=== PATIENT | female | born 1990 | race Hispanic/Latino ===

== ENCOUNTER 2017-10-05 01:25 | Inpatient (IN) | payer MEDICAID ==
[2017-10-05] MEDS ORDERED: Sodium Chloride 0.9% 1,000 ML IV ONE (01:39)
--- NOTE | 2017-10-05 02:00 | C.PDOC ---
History Of Present Illness 27 yo female, poor historian, reports hx of MS ( not on medication), was taking methadone that discontinue 3 months ago, come in for evaluation of seizures developed for past 4 days. Pt reports, " my roommate tells me that I have multiple seizures, describes my eyes rolls back and my body is shaking". Pt admits, was falling frequent for past few days as well. Pt c/o body pain now, appears anxious, intoxicated. Pt denies previous hx of seizure. Pt denies drug use. [facility] Tram[facility]ol 50mg#15, 09/21/17 Tramadol 50mg#12, 08/23/17 Morphine 30mg#120,07/05/17 Morphine 30mg#120, 05/30/17 Morphine 30mg#180, Morphine 15mg#180, etc. Pt was seen by PM Dr.Henry Luna, [address] [place] [address] Time Seen by Provider: 10/05/17 01:38 Chief Complaint (Nursing): Seizure History Per: Patient Past Medical History Reviewed: Historical Data, Nursing Documentation, Vital Signs Vital Signs: Last Vital Signs Temp 97.9 F 10/05/17 05:36 Pulse 106 H 10/05/17 05:36 Resp 18 10/05/17 05:36 BP 142/84 10/05/17 05:36 Pulse Ox 97 10/05/17 05:58 - Medical History PMH: Multiple Sclerosis (DIAG.2YRS AGO) Family History: States: No Known Family Hx - Social History Hx Alcohol Use: Yes Hx Substance Use: Yes - Immunization History Hx Tetanus Toxoid Vaccination: No Hx Influenza Vaccination: No Hx Pneumococcal Vaccination: No Review Of Systems Except As Marked, All Systems Reviewed And Found Negative. Constitutional: Negative for: Fever, Chills Eyes: Negative for: Vision Change ENT: Negative for: Ear Discharge, Nose Discharge Cardiovascular: Negative for: Chest Pain Respiratory: Negative for: Cough, Shortness of Breath Gastrointestinal: Negative for: Nausea, Vomiting, Abdominal Pain, Diarrhea Genitourinary: Negative for: Incontinence Musculoskeletal: Positive for: Back Pain Skin: Positive for: Bruising Neurological: Positive for: Seizures Physical Exam - Physical Exam Appears: Well, Non-toxic, Agitated Skin: Normal Color, Warm, Dry, Ecchymosis (trace ecchymoses B/L UEs) Head: Normacephalic Eye(s): bilateral: PERRL (slugish B/L, horizontal nystagmus, mild), EOMI, Other (trace ecchymoses B/L upper lids, no periorbital edema or ecchymoses) Ear(s): Bilateral: Normal Nose: No Flaring, No Discharge Oral Mucosa: Moist, No Drooling, No Trismus Tongue: No Lesions Lips: No Swelling Throat: No Drooling Neck: Trachea Midline, No Midline Cervical Tenderness, No Paracervical Tenderness, No Step Off Deformity, Supple Cardiovascular: Rhythm Regular, No Murmur, No JVD Respiratory: No Decreased Breath Sounds, No Accessory Muscle Use, No Rales, No Rhonchi, No Stridor, No Wheezing Gastrointestinal/Abdominal: Soft, No Tenderness, No Distention, No Guarding, No Rebound Back: No CVA Tenderness Extremity: Normal ROM, No Tenderness, No Pedal Edema, No Deformity, No Swelling Neurological/Psych: Oriented x3, Normal Speech, Normal Motor, Normal Sensation, Normal Reflexes ED Course And Treatment - Laboratory Results Result Diagrams: 10/05/17 02:17 10/05/17 02:17 Lab Interpretation: No Acute Changes ECG: Interpreted By Me, Viewed By Me ECG Rhythm: Sinus Tachycardia Interpretation Of ECG: Sinus tachy@102/min, NAD, no acute T wave or ST-T changes. O2 Sat by Pulse Oximetry: 97 Pulse Ox Interpretation: Normal - Radiology CXR: Interpreted by Me, Viewed By Me CXR Interpretation: Yes: No Acute Disease - CT Scan/US CT head Other Rad Studies (CT/US): Radiology Report Reviewed CT/US Interpretation: HEAD W/O CONTRAST Exam Date: 10/05/17. . This imaging exam was performed at [facility]. EXAM: CT Head Without Intravenous Contrast. . CLINICAL HISTORY: 27 years old, female; Pain; Headache and other: Seizure. . TECHNIQUE: Axial computed tomography images of the head/brain without intravenous. contrast. All CT scans at this facility use one or more dose reduction. techniques, viz.: automated exposure control; ma/kV adjustment per patient size. (including targeted exams where dose is matched to indication; i.e. head); or. iterative reconstruction technique. Coronal and sagittal reformatted images were created and reviewed. . COMPARISON: No relevant prior studies available. . FINDINGS: Brain: No intracranial hemorrhage. No mass. No definite edema. Ventricles: No hydrocephalus. Bones/joints: No acute fracture. Soft tissues: Unremarkable. Sinuses: No acute sinusitis. Mastoid air cells: Partial opacification of RIGHT mastoid. Orbits: Unremarkable as visualized. . IMPRESSION: 1. No definite acute intracranial abnormality. 2. Mastoid disease. . Dictated By: Amanuel Garrett MD. Dictated Date/Time: 10/05/17231. Signed By: Amanuel Garrett MD. Date Signed: 10/05/17231. Transcribed By: [facility]. Transcribe Date/Time: 10/05/17231. ACYP02/MT Progress Note: On re-eval, Pt appears more comfortable now, resting, not in any apparent distress. No Sz episodes registered in ED. PulsEOx 97% RA. neck: Supple, (-) meningeal sign, (-) carotid bruits, (-) JVD. Lungs: CTA B/L, BS equal B/L. Abd: benign, (-) guarding, (-) rebound. Neurologicaly intact. Blood work review, no acute changes. Imaging review- normal. Pt has clinical findings c/w New onset of seizure, r/o opioid withdrawal. Case discussed with and admission recommend. case discussed with , [facility] and admission arranged with Dx; new onset of sz, Neuro consult ordered. Disposition - Disposition Disposition: HOSPITALIZED Disposition Time: 03:14 Condition: STABLE - Clinical Impression Clinical Impression: Seizure, Opioid withdrawal
[2017-10-05] MEDS ORDERED: Sodium Chloride 0.9% 1,000 ML ONE (02:13)
[2017-10-05 02:25] LABS: BASO # 0.1 K/uL (0.0-0.2); BASO % 0.6 % (0.0-2.0); EOS # 0.3 K/uL (0.0-0.7); EOS % 2.1 % (0.0-4.0); HEMOGLOBIN 11.4 g/dL (11.0-16.0); LYMPH # 2.1 K/uL (1.0-4.3); LYMPH % 16.9 % (20.0-40.0); MEAN CELL VOLUME 93.5 fL (81.0-99.0); MEAN CORPUSCULAR HGB CONC 33.1 g/dL (33.0-37.0); MEAN PLATELET VOLUME 9.4 fL (7.2-11.7); MONO # 1.1 K/uL (0.0-0.8); MONO % 9.3 % (0.0-10.0); NEUT # 8.7 K/uL (1.8-7.0); NEUT % 71.1 % (50.0-75.0); RBC 3.68 Mil/uL (3.80-5.20); RED CELL DISTRIBUTION WIDTH 14.9 % (11.5-14.5); WHITE BLOOD COUNT 12.2 K/uL (4.8-10.8)
[2017-10-05 02:28] LABS: SQUAMOUS EPITHIAL 2 /hpf (0-5); URINE BACTERIA RARE (<OCC); URINE BILIRUBIN NEGATIVE (NEGATIVE); URINE BLOOD NEGATIVE (NEGATIVE); URINE CLARITY Clear (Clear); URINE COLOR Yellow (YELLOW); URINE GLUCOSE (UA) NORMAL (Normal); URINE LEUKOCYTE ESTERASE NEG Leu/uL (Negative); URINE NITRATE NEGATIVE (NEGATIVE); URINE PROTEIN NEGATIVE (NEGATIVE); URINE UROBILINOGEN NORMAL mg/dL (0.2-1.0)
[2017-10-05 02:32] LABS: HCG,QUALITATIVE URINE NEGATIVE (NEGATIVE)
--- NOTE | 2017-10-05 02:32 | CT ---
EXAM: CT Head Without Intravenous Contrast CLINICAL HISTORY: 27 years old, female; Pain; Headache and other: Seizure TECHNIQUE: Axial computed tomography images of the head/brain without intravenous contrast. All CT scans at this facility use one or more dose reduction techniques, viz.: automated exposure control; ma/kV adjustment per patient size (including targeted exams where dose is matched to indication; i.e. head); or iterative reconstruction technique. Coronal and sagittal reformatted images were created and reviewed. COMPARISON: No relevant prior studies available. FINDINGS: Brain: No intracranial hemorrhage. No mass. No definite edema. Ventricles: No hydrocephalus. Bones/joints: No acute fracture. Soft tissues: Unremarkable. Sinuses: No acute sinusitis. Mastoid air cells: Partial opacification of RIGHT mastoid. Orbits: Unremarkable as visualized. IMPRESSION: 1. No definite acute intracranial abnormality. 2. Mastoid disease.
[2017-10-05 02:36] LABS: INR 0.8; PROTHROMBIN TIME 9.3 SECONDS (9.7-12.2)
[2017-10-05 02:37] LABS: ALB/GLOB RATIO 1.5 (1.0-2.1); ALBUMIN 3.9 g/dL (3.5-5.0); ALT/SGPT 40 U/L (9-52); AST/SGOT 21 U/L (14-36); BLOOD UREA NITROGEN 30 mg/dL (7-17); CALCIUM 8.5 mg/dl (8.6-10.4); GFR AFRICAN-AMERICAN > 60; GFR NON-AFRICAN AMERICAN > 60
[2017-10-05 02:38] LABS: BARBITURATES, UR NEGATIVE (NEGATIVE); BENZODIAZEPINES, UR NEGATIVE (NEGATIVE); OPIATES, UR NEGATIVE (NEGATIVE); PHENCYCLIDINE, UR NEGATIVE (NEGATIVE)
[2017-10-05 04:33] LABS: URINE BACTERIA RARE (<OCC); URINE BILIRUBIN NEGATIVE (NEGATIVE); URINE BLOOD NEGATIVE (NEGATIVE); URINE CLARITY Clear (Clear); URINE COLOR Straw (YELLOW); URINE GLUCOSE (UA) NORMAL (Normal); URINE LEUKOCYTE ESTERASE NEG Leu/uL (Negative); URINE NITRATE NEGATIVE (NEGATIVE); URINE PROTEIN NEGATIVE (NEGATIVE); URINE UROBILINOGEN NORMAL mg/dL (0.2-1.0)
[2017-10-05 04:46] LABS: BARBITURATES, UR NEGATIVE (NEGATIVE); BENZODIAZEPINES, UR NEGATIVE (NEGATIVE); OPIATES, UR NEGATIVE (NEGATIVE); PHENCYCLIDINE, UR NEGATIVE (NEGATIVE)
[2017-10-05 04:59] LABS: PROLACTIN 12.6 ng/mL (3.0-18.9)
--- NOTE | 2017-10-05 07:12 | CP.PCM.CON ---
History of Present Illness - History of Present Illness History of Present Illness: CONSULT DICTATED SZ X EVERY DAY X4 BITTEN TONGUE POST OPTIC NEURITIS DIG MS Rx GELYNIA AT [facility] NON COMPLIANT UNDER PAIN MANAGEMENT ON METHADONE MRI/EEG / BLOOD FALL AND SZ PRECAUTION NO AED NOW Past Patient History - Infectious Disease Hx of Infectious Diseases: None - Past Social History Smoking Status: [place]IJ[place] - NEUROLOGICAL Hx Multiple Sclerosis: Yes (DIAG.2YRS AGO) - PSYCHIATRIC Hx Substance Use: Yes - SURGICAL HISTORY Hx Surgeries: No - ANESTHESIA Hx Anesthesia: No Meds Allergies/Adverse Reactions: Allergies Allergy/AdvReac Type Severity Reaction Status Date / Time No Known Allergies Allergy Verified 10/05/17 02:08 - Medications Medications: Current Medications Lorazepam (Ativan) 1 mg IVP ONCE ONE Stop: 10/05/17 07:10 Results - Vital Signs Recent Vital Signs: Last Vital Signs Temp 98 F 10/05/17 06:15 Pulse 110 H 10/05/17 06:15 Resp 20 10/05/17 06:15 BP 146/77 10/05/17 06:15 Pulse Ox 97 10/05/17 06:15 - Labs Result Diagrams: 10/05/17 02:17 10/05/17 02:17 Labs: Laboratory Results - last 24 hr 10/05/17 10/05/17 10/05/17 02:17 02:17 02:17 WBC 12.2 H RBC 3.68 L Hgb 11.4 Hct 34.4 MCV 93.5 MCH 31.0 MCHC 33.1 RDW 14.9 H Plt Count 355 MPV 9.4 Neut % (Auto) 71.1 Lymph % (Auto) 16.9 L [place] % (Auto) 9.3 Eos % (Auto) 2.1 Baso % (Auto) 0.6 Neut # (Auto) 8.7 H Lymph # (Auto) 2.1 [place] # (Auto) 1.1 H Eos # (Auto) 0.3 Baso # (Auto) 0.1 PT 9.3 L INR 0.8 APTT 27 Sodium Potassium Chloride Carbon Dioxide Anion Gap BUN Creatinine Est GFR ( Amer) Est GFR (Non-Af Amer) Random Glucose Calcium Total Bilirubin AST ALT Alkaline Phosphatase Total Creatine Kinase Troponin I Total Protein Albumin Globulin Albumin/Globulin Ratio Prolactin Urine Color Urine Clarity Urine pH Ur Specific [place] Urine Protein Urine Glucose (UA) Urine Ketones Urine Blood Urine Nitrate Urine Bilirubin Urine Urobilinogen Ur Leukocyte Esterase Urine WBC (Auto) Urine RBC (Auto) Ur Squamous Epith Cells Urine Bacteria Urine HCG, Qual Urine Opiates Screen Urine Methadone Screen Ur Barbiturates Screen Ur Phencyclidine Scrn Ur Amphetamines Screen U Benzodiazepines Scrn U Oth Cocaine Metabols U Cannabinoids Screen Influenza Typ A,B (EIA) Negative for flu a/b 10/05/17 10/05/17 10/05/17 02:17 02:17 02:17 WBC RBC Hgb Hct MCV MCH MCHC RDW Plt Count MPV Neut % (Auto) Lymph % (Auto) [place] % (Auto) Eos % (Auto) Baso % (Auto) Neut # (Auto) Lymph # (Auto) [place] # (Auto) Eos # (Auto) Baso # (Auto) PT INR APTT Sodium 141 Potassium 4.2 Chloride 105 Carbon Dioxide 22 Anion Gap 18 BUN 30 H Creatinine 1.1 Est GFR ( Amer) > 60 Est GFR (Non-Af Amer) > 60 Random Glucose 113 H Calcium 8.5 L Total Bilirubin 0.3 AST 21 ALT 40 Alkaline Phosphatase 93 Total Creatine Kinase Troponin I < 0.0120 Total Protein 6.5 Albumin 3.9 Globulin 2.7 Albumin/Globulin Ratio 1.5 Prolactin Urine Color Yellow Urine Clarity Clear Urine pH 5.0 Ur Specific [place] 1.028 Urine Protein Negative Urine Glucose (UA) Normal Urine Ketones Negative Urine Blood Negative Urine Nitrate Negative Urine Bilirubin Negative Urine Urobilinogen Normal Ur Leukocyte Esterase Neg Urine WBC (Auto) 1 Urine RBC (Auto) 1 Ur Squamous Epith Cells 2 Urine Bacteria Rare Urine HCG, Qual Negative Urine Opiates Screen Negative Urine Methadone Screen Negative Ur Barbiturates Screen Negative Ur Phencyclidine Scrn Negative Ur Amphetamines Screen Negative U Benzodiazepines Scrn Negative U Oth Cocaine Metabols Negative U Cannabinoids Screen Negative Influenza Typ A,B (EIA) 10/05/17 10/05/17 10/05/17 04:27 04:27 04:27 WBC RBC Hgb Hct MCV MCH MCHC RDW Plt Count MPV Neut % (Auto) Lymph % (Auto) [place] % (Auto) Eos % (Auto) Baso % (Auto) Neut # (Auto) Lymph # (Auto) [place] # (Auto) Eos # (Auto) Baso # (Auto) PT INR APTT Sodium Potassium Chloride Carbon Dioxide Anion Gap BUN Creatinine Est GFR ( Amer) Est GFR (Non-Af Amer) Random Glucose Calcium Total Bilirubin AST ALT Alkaline Phosphatase Total Creatine Kinase Troponin I Total Protein Albumin Globulin Albumin/Globulin Ratio Prolactin Urine Color Straw Urine Clarity Clear Urine pH 5.0 Ur Specific [place] 1.030 Urine Protein Negative Urine Glucose (UA) Normal Urine Ketones Negative Urine Blood Negative Urine Nitrate Negative Urine Bilirubin Negative Urine Urobilinogen Normal Ur Leukocyte Esterase Neg Urine WBC (Auto) < 1 Urine RBC (Auto) 1 Ur Squamous Epith Cells Urine Bacteria Rare Urine HCG, Qual Negative Urine Opiates Screen Negative Urine Methadone Screen Negative Ur Barbiturates Screen Negative Ur Phencyclidine Scrn Negative Ur Amphetamines Screen Negative U Benzodiazepines Scrn Negative U Oth Cocaine Metabols Negative U Cannabinoids Screen Negative Influenza Typ A,B (EIA) 10/05/17 04:29 WBC RBC Hgb Hct MCV MCH MCHC RDW Plt Count MPV Neut % (Auto) Lymph % (Auto) [place] % (Auto) Eos % (Auto) Baso % (Auto) Neut # (Auto) Lymph # (Auto) [place] # (Auto) Eos # (Auto) Baso # (Auto) PT INR APTT Sodium Potassium Chloride Carbon Dioxide Anion Gap BUN Creatinine Est GFR ( Amer) Est GFR (Non-Af Amer) Random Glucose Calcium Total Bilirubin AST ALT Alkaline Phosphatase Total Creatine Kinase 79 Troponin I Total Protein Albumin Globulin Albumin/Globulin Ratio Prolactin 12.6 Urine Color Urine Clarity Urine pH Ur Specific [place]itus Urine Protein Urine Glucose (UA) Urine Ketones Urine Blood Urine Nitrate Urine Bilirubin Urine Urobilinogen Ur Leukocyte Esterase Urine WBC (Auto) Urine RBC (Auto) Ur Squamous Epith Cells Urine Bacteria Urine HCG, Qual Urine Opiates Screen Urine Methadone Screen Ur Barbiturates Screen Ur Phencyclidine Scrn Ur Amphetamines Screen U Benzodiazepines Scrn U Oth Cocaine Metabols U Cannabinoids Screen Influenza Typ A,B (EIA)
--- NOTE | 2017-10-05 07:40 | RAD ---
Chest x-ray single frontal view History: Seizure. Comparison: 10/05/2017 Findings: Mild venous congestion. Bilateral hilar prominence. Heart size within normal limits. Impression: Mild venous congestion. Bilateral hilar prominence.
[2017-10-05 08:13] LABS: MAGNESIUM 1.8 mg/dL (1.6-2.3)
--- NOTE | 2017-10-05 09:24 | CP.PCM.PN ---
Subjective - Date & Time of Evaluation Date of Evaluation: 10/05/17 Time of Evaluation: 09:40 - Subjective Subjective: [facility] # [id number] Objective - Vital Signs/Intake and Output Vital Signs (last 24 hours): Temp Pulse Resp BP Pulse Ox 98.8 F 102 H 18 114/72 98 10/05/17 08:35 10/05/17 08:35 10/05/17 08:35 10/05/17 08:35 10/05/17 08:35 - Labs Labs: 10/05/17 02:17 10/05/17 02:17 PT 9.3 SECONDS (9.7-12.2) L 10/05/17 02:17 INR 0.8 10/05/17 02:17 APTT 27 SECONDS (21-34) 10/05/17 02:17
[2017-10-05] MEDS ORDERED: Gadodiamide 287 mg/ml 20 ml IV ONE (11:06)
--- NOTE | 2017-10-05 13:27 | MRI ---
PROCEDURE: MRI of the brain dated 10/05/2017. HISTORY: Seizure protocol - attention mesial temporal lobe COMPARISON: Comparison made with CT scan earlier same day. TECHNIQUE: Multiplanar, multisequence MR images of the brain were obtained with and without intravenous contrast enhancement. Approximately 14 cc Omniscan contrast material injected for this examination. Study is limited by motion artifact. FINDINGS: HEMORRHAGE: Same day no acute parenchymal, subarachnoid or extra-axial hemorrhage. No evidence of hemosiderin deposition identified on gradient echo weighted sequence. There DWI: No evidence of an acute or early subacute infarction seen on diffusion imaging. BRAIN PARENCHYMA: There are no focal areas of abnormal signal poor contrast enhancement seen within the substance of the brain. . No evidence to suggest mesial temporal sclerosis. No enhancing extra-axial masses or collections. No evidence of unusual meningeal enhancement. . ENHANCEMENT: No enhancement as above. . VENTRICLES: No obstructive hydrocephalus. CRANIUM: No acute calvarial abnormalities ORBITS: Orbits and contents grossly unremarkable PARANASAL SINUSES/MASTOIDS: Partial opacification right mastoid air complex. VASCULAR SYSTEM: Visualized major vascular flow voids at skull base are patent. . OTHER FINDINGS: None . IMPRESSION: No acute intracranial abnormalities. Partial opacification right mastoid air complex. Findings discussed with Dr. Zheng at 1:18 p.m. with written down and read back verification.
[2017-10-05] MEDS: Morphine 4 MG/ML VIAL IVP PRN ×2 (14:26→21:13)
[2017-10-05 14:54] LABS: ANA PATTERN NUCLEOLAR
--- NOTE | 2017-10-05 18:11 | CON ---
DATE: 10/05/2017 TIME OF EVALUATION: 07:05 a.m. ATTENDING PHYSICIAN: Brandie Valdes MD LOCATION: Room number 0559, bed B. REASON FOR CONSULTATION: Seizures. CHIEF COMPLAINT: The patient was brought in by family members with a history of seizures at home. From neurological point of view, I was called in to evaluate her for further management. HISTORY OF PRESENT ILLNESS: Ms. Kalpana Murillo is a 27-year-old very anxious, tremulous female, presenting with seizures every day for the last 4 days. She was told that she was tremulous, both eyes rolled up and fell. During the fall she hit her head and as well as she hit her arm last attack. This episode was associated with bitten tongue on the right lateral side of her tongue. No history of bowel and bladder incontinence during the episodes. She has been complaining of severe body pain that brings her to the hospital for further management. PAST MEDICAL HISTORY: History of optic neuritis three times more than 2 years ago, been followed by a neurologist in the [facility] by Dr. Felipe. He started her on Gilenya. Because of gastric problem, she stopped her medication more than 2 months now. No history of flare-up from MS. However, she has been having severe significant pain, been followed by Pain Management, been hooked up with methadone for now. Past medical history of multiple sclerosis, history of optic neuritis, and drug dependency. PERSONAL HISTORY: No history of alcohol use. No history of substance abuse. REVIEW OF SYSTEMS: The 12-point system being reviewed from neuro, syncopal, and seizures. PHYSICAL EXAMINATION: VITAL SIGNS: Blood pressure 146/77, mean artery pressure of 100, respiratory rate 16, temperature 98, pulse rate 110. NECK: Supple. No carotid bruits. HEART: Heart sounds regular. CHEST: Fair air entry. EXTREMITIES: No edema in legs. NEUROLOGIC EXAMINATION: Mental status examination: She is anxious awake, alert, and oriented to person, place, and time. No sign of depression. No sign of hallucination. She is highly comprehended. Cranial nerve examination: Visual field intact. Pupils reactive to light. Extraocular movement normal. No nystagmus. No facial sensory deficit. No facial asymmetry. Hearing is normal. Tongue is midline. Good gag. No nystagmus at the primary gaze. No afferent pupillary defect. Motor examination, he could be able to lift both upper extremities against gravity. Some tremor noted on both upper extremities. No asterixis. Deep tendon reflexes biceps, brachialis, triceps, knee, and ankle all are 2+ on either side. Plantars are downgoing. Sensory examination: No cortical sensory loss. Coordination: Finger-nose test is intact. Gait: Short step. No hemiparetic gait. No spastic gait. Romberg sign negative. WORKUP: CT of the head reviewed, no acute pathology is noted. BLOOD WORKUP: WBC 12.3, hemoglobin 11.4, hematocrit 34.4, platelet 355. PT 9.3, INR 0.8, PTT 27. Sodium 141, potassium 4.2, chloride 105, bicarbonate 22, BUN 30, GFR more than 60, glucose 113. Urinalysis normal. HCG is negative. Urine for tox screen is negative. CONCLUSION: Ms. Kalpana Murillo has been presenting with witnessed seizures as per the history with association with a bitten tongue on the right lateral part of the tongue. For the neurological examination, the patient showed a very anxious level with no long tract sign present. RECOMMENDATIONS: 1. IV hydration. 2. Check the electrolytes. 3. MRA of the brain with and without gadolinium to rule out any acute pathology to assess the demyelinating disease. 4. Electroencephalogram to rule out any focal seizures or abnormal electrical activities of the brain. 5. Blood workup as per the order. No antiepileptic drug is needed at this time. I will closely observe her and fall precautions and seizure precautions should be maintained. The patient will be followed closely with you. Avery Zheng MD
--- NOTE | 2017-10-06 01:19 | HP ---
CHIEF COMPLAINT: The patient had witnessed seizure. He has been having multiple episodes of seizures for the past 4 days. HISTORY OF PRESENT ILLNESS: Mr. Murillo is a 27-year-old female with multiple sclerosis diagnosed about 2 years ago, on Gilenya, who has been following up with Neurology at [facility], self-discontinued Gilenya secondary to nausea about 3 months ago. She was recently evaluated by Neurology in August. Noncompliance with her other medication. Has been following up with the Pain Management as per the patient from [place]. Has been on baclofen for many years. Recently admitted to [facility] about 2 days ago for seizures and was there a day and discharged home and the patient came into [facility] ED complaining of having the seizures one everyday for the past 4 days. As per the patient, the seizure occurred yesterday and she came into the hospital taking Uber as per the patient. When I examined, she denies any headache or dizziness. Denies any chest pain, shortness of breath, or wheezing. Denies any nausea, vomiting, abdominal pain, diarrhea, or constipation, but complaining of generalized body aches, back pain, and leg pains and demanding for the morphine or the pain medication claiming that morphine helped her and she was given morphine by the Pain Management MD as outpatient and she refused to go to EEG because she did not get her pain medication. When I examined, she denied any other complaints or any other neurologic symptoms. She denied any aura or any other associated symptoms when she has had seizure, other than having tongue bite which was witnessed by the roommate. PAST MEDICAL HISTORY: As described, multiple sclerosis. PAST SURGICAL HISTORY: Underwent lacrimal gland surgery and wisdom tooth extracted many years ago. FAMILY HISTORY: Coronary artery disease in mother, brother, grandmother, and uncle has history of diabetes mellitus. PERSONAL HISTORY: She is single, not , not having any children. Lives with roommate. Her parents are from [place], they live in [place] as per the patient. SOCIAL HISTORY: She smokes marijuana for pain, which she used about 2 weeks ago. Denies smoking or any other drugs. ALLERGIES: SHE IS ALLERGIC TO CIPROFLOXACIN AND REGLAN. HOME MEDICATIONS: She is noncompliant with medications and not taking any medications at the present time, but claims that she was given Baclofen 20 mg p.o. t.i.d. and morphine by her pain management MD. REVIEW OF SYSTEMS: As described in history of present illness. All other systems reviewed and were found to be negative. PHYSICAL EXAMINATION: GENERAL: Young female, lying in bed, in no acute distress. VITAL SIGNS: Blood pressure 114/72, pulse 102, respirations 18, temperature 98.8 degrees Fahrenheit, O2 saturations 98% on room air. HEENT: Pupils equal, round, and reactive to light and accommodation. Extraocular muscles intact. No icterus. No pallor. No oral thrush. No pharyngeal congestion. NECK: Supple. No JVD. No thyromegaly. CHEST: Moving equally bilaterally on respiration. LUNGS: Bilateral vesicular breath sounds. No wheezing, no rhonchi. CVS: S1, S2 present. Regular. ABDOMEN: Soft. Nontender. Bowel sounds present. No guarding. No rigidity. No rebound tenderness noted. COMPUTING CONSULTANT: Alert, awake, and oriented x3. No focal deficits noted. EXTREMITIES: No edema. Palpable peripheral pulses. LABORATORY DATA: Labs sent from ED, WBC 12.2, hemoglobin 11.4, hematocrit 34.4, platelets 355. PT is 9.3, INR 0.8, PTT 27. Sodium 141, potassium 4.2, chloride 105, bicarbonate 22. BUN 30, creatinine 1.1, glucose 113, calcium 8.5, phosphorus 3.7, magnesium 1.8, total bilirubin 0.8, 0.3, AST 21, ALT 40, alkaline phosphatase 93, CPK 79. Cardiac enzymes x2 are negative. Total protein 6.5, albumin 3.9, vitamin B 16.6, prolactin 17. UA is negative. Urine drug screen is negative. Influenza negative. CT head, partial opacification of the right mastoid. No definite acute intracranial abnormality. Chest x-ray: Mild venous congestion, bilateral hilar prominence. MRI of the brain: No acute intracranial abnormalities, partial opacification of right mastoid complex. ASSESSMENT AND PLAN: Young female with prior history of multiple sclerosis diagnosed 2 years ago, was on Gilenya, self discontinued. Has been on multiple pain medications as per her by the pain management, who was admitted to [facility] for 2 days and released after a day, came into the emergency department as the patient has been having seizures everyday for the past 4 days and she had 2 seizures yesterday, which were witnessed and she had tongue bite. The patient is being admitted for further evaluation and management. 1. New-onset seizure in a patient with prior history of multiple sclerosis. 2. Chronic low back pain. 3. Partial opacification of the right mastoid complex. PLAN: The patient is being admitted to telemetry, was monitored for seizure precaution, fall prevention. EEG is still pending. MRI results reviewed. Neurology consult appreciated. We will give morphine for pain as needed, Ativan as needed for seizures. Avail obtaining ENT consult for mastoid disease. We will start empiric antibiotics. We will add further recommendation as her clinical course progresses. Brandie Valdes MD
[2017-10-06] MEDS: Morphine 4 MG/ML VIAL IVP PRN ×2 (04:11→10:08)
--- NOTE | 2017-10-06 04:17 | CON ---
DATE: 10/05/2017 REASON FOR CONSULTATION: Possible mastoiditis. REQUESTING PHYSICIAN: Dr. Valdes. HISTORY OF PRESENT ILLNESS: This is a 27-year-old who for the past 3 days has been having seizures along with dizziness. Dizziness is constant, [id number] in intensity. There is no hearing loss. No ear pain. No ringing in the ear. The dizziness is accompanied by vertigo. PAST MEDICAL HISTORY: As noted in the chart by me. MEDICATIONS: As noted in the chart by me. PHYSICAL EXAMINATION: HEAD: Atraumatic and normocephalic. FACE: Good facial movements bilaterally. CONSTITUTIONAL: Well fed, well nourished. COMMUNICATION: Communicates well and appropriately. EXTERNAL NOSE AND EARS: No masses. No lesions. No erythema. No edema. Ears: TM intact with no fluid behind it on both sides on both sides. INTERNAL NOSE AND EARS: Deviated septum. No masses. No lesions. No erythema. No edema. ORAL CAVITY AND OROPHARYNX: No masses. No lesions. No erythema. No edema. LIPS AND GUMS: No masses. No lesions. No erythema. No edema. NECK: Supple. THYROID: No thyromegaly. No goiter. LYMPH NODES: No lymphadenopathy of the neck. A CAT scan of the head was reviewed by me. No significant mastoiditis is noted. ASSESSMENT: 1. Mastoiditis not noted. 2. Dizziness secondary to seizures. No ENT intervention is needed at this time. Satnam Ferreira MD MTDD
[2017-10-06 09:07] LABS: BASO # 0.1 K/uL (0.0-0.2); BASO % 0.6 % (0.0-2.0); EOS # 0.3 K/uL (0.0-0.7); EOS % 2.4 % (0.0-4.0); HEMOGLOBIN 12.5 g/dL (11.0-16.0); LYMPH # 1.5 K/uL (1.0-4.3); LYMPH % 12.2 % (20.0-40.0); MEAN CELL VOLUME 91.7 fL (81.0-99.0); MEAN CORPUSCULAR HEMOGLOBIN 31.3 pg (27.0-31.0); MEAN CORPUSCULAR HGB CONC 34.2 g/dL (33.0-37.0); MEAN PLATELET VOLUME 9.1 fL (7.2-11.7); MONO # 0.8 K/uL (0.0-0.8); MONO % 6.5 % (0.0-10.0); NEUT # 9.4 K/uL (1.8-7.0); NEUT % 78.3 % (50.0-75.0); NRBC % 0.1 % (0.0-2.0); RBC 3.98 Mil/uL (3.80-5.20); RED CELL DISTRIBUTION WIDTH 15.3 % (11.5-14.5); WHITE BLOOD COUNT 12.1 K/uL (4.8-10.8)
--- NOTE | 2017-10-06 09:31 | CP.PCM.PN ---
Subjective - Date & Time of Evaluation Date of Evaluation: 10/06/17 Time of Evaluation: 09:30 - Subjective Subjective: Progress note dictated # [id number] Objective - Vital Signs/Intake and Output Vital Signs (last 24 hours): Temp Pulse Resp BP Pulse Ox 98.1 F 98 H 20 124/82 98 10/06/17 07:00 10/06/17 07:00 10/06/17 07:00 10/06/17 07:00 10/06/17 07:00 - Medications Medications: Current Medications Ceftriaxone Sodium 1 gm/ (Sodium Chloride) 100 mls @ 200 mls/hr IVPB Q24H MICHAEL Last Admin: 10/05/17 14:27 Dose: 200 mls/hr Morphine Sulfate (Morphine) 2 mg IVP Q6H PRN PRN Reason: Pain, severe (8-10) Last Admin: 10/06/17 04:11 Dose: 2 mg - Labs Labs: 10/06/17 08:51 10/05/17 02:17 PT 9.3 SECONDS (9.7-12.2) L 10/05/17 02:17 INR 0.8 10/05/17 02:17 APTT 27 SECONDS (21-34) 10/05/17 02:17
[2017-10-06 09:58] LABS: LDL CHOLESTEROL 110 mg/dL (0-129)
[2017-10-06 10:58] LABS: ALT/SGPT 49 U/L (9-52)
[2017-10-06 10:59] LABS: ALB/GLOB RATIO 1.2 (1.0-2.1); AST/SGOT 44 U/L (14-36); BLOOD UREA NITROGEN 15 mg/dL (7-17); CALCIUM 9.2 mg/dl (8.6-10.4); GFR AFRICAN-AMERICAN > 60; GFR NON-AFRICAN AMERICAN > 60; HDL CHOLESTEROL 58 mg/dL (30-70)
[2017-10-06] MEDS: HYDROmorphone 1 mg/ml ISec IVP PRN ×2 (12:41→19:05)
[2017-10-07] MEDS: HYDROmorphone 1 mg/ml ISec IVP PRN ×4 (01:07→20:51)
--- NOTE | 2017-10-07 02:04 | PN ---
DATE: 10/06/2017 SUBJECTIVE: The patient was seen and examined at bedside this morning. The patient is still complaining of generalized body aches and back pain, requesting for more pain medications and muscle relaxants. Denies any new complaints. All other systems reviewed and were found to be negative. PHYSICAL EXAMINATION: GENERAL: Young female lying in bed in no acute distress. VITAL SIGNS: Blood pressure 105/68, pulse 76, respirations 18, temperature 99 degrees Fahrenheit, O2 saturation is 98% on room air. HEENT: Pupils equal, round, and reacting to light and accommodation. Extraocular muscles intact. No icterus. No pallor. No oral thrush. No pharyngeal congestion. NECK: Supple. No JVD. No thyromegaly. CHEST: Moving equally bilaterally on respiration. LUNGS: Bilateral vesicular breath sounds. No wheezing, no rhonchi. CVS: S1, S2 present. Regular. ABDOMEN: Soft. Nontender. Bowel sounds present. No guarding. No rigidity. No rebound tenderness noted. MEETING SPECIALIST: Alert, awake, and oriented x3. No focal deficits noted. EXTREMITIES: No edema. Palpable peripheral pulses. MEDICATIONS: Include Rocephin 1 gm daily, Dilaudid 1 mg IV push q. 6 p.r.n. LABORATORY DATA: Labs from this morning: WBC 12.1, hemoglobin 12.5, hematocrit 36.5, platelets 342. Sodium 140, potassium 3.6, chloride 101, bicarb 26, BUN 15, creatinine 0.5. glucose 81, calcium 9.2, AST 44, ALT 49, alkaline phosphatase 62. Triglycerides 84, cholesterol 193, LDL 110, HDL 58, ____ 53, vitamin B 16.6. TSH 1.14. SERVANDO positive, 1:40, nucleolar pattern. Blood cultures negative. ASSESSMENT AND PLAN: An young female with history of multiple sclerosis, diagnosed about 2 years ago. As per the patient, noncompliant with medications for multiple sclerosis. Admitted for new-onset seizures. The patient remains seizure free since admission. The patient had EEG done. Results are pending. Requesting for more pain medication and muscle relaxant. Mastoiditis. We will follow up after EEG results. Follow up with Neurology. If cleared by Neurology, we will plan discharging the patient home. I advised the patient to obtain the medication list from home. The patient is requesting for more pain medications. Morphine is changed to Dilaudid. We will watch for any further seizures. Discussed with patient at length and clarified all her questions and concerns. Brandie Valdes MD
[2017-10-07 08:08] LABS: BASO # 0.1 K/uL (0.0-0.2); BASO % 0.6 % (0.0-2.0); EOS # 0.1 K/uL (0.0-0.7); EOS % 0.9 % (0.0-4.0); HEMOGLOBIN 13.6 g/dL (11.0-16.0); LYMPH # 1.2 K/uL (1.0-4.3); LYMPH % 9.7 % (20.0-40.0); MEAN CELL VOLUME 91.7 fL (81.0-99.0); MEAN CORPUSCULAR HEMOGLOBIN 31.6 pg (27.0-31.0); MEAN CORPUSCULAR HGB CONC 34.5 g/dL (33.0-37.0); MEAN PLATELET VOLUME 8.9 fL (7.2-11.7); MONO # 0.6 K/uL (0.0-0.8); MONO % 4.8 % (0.0-10.0); NRBC % 0.1 % (0.0-2.0); PLATELET COUNT 390 K/uL (130-400); RBC 4.31 Mil/uL (3.80-5.20); RED CELL DISTRIBUTION WIDTH 14.9 % (11.5-14.5); WHITE BLOOD COUNT 11.9 K/uL (4.8-10.8)
[2017-10-07 08:27] LABS: ALB/GLOB RATIO 1.1 (1.0-2.1); ALBUMIN 4.4 g/dL (3.5-5.0); ALT/SGPT 62 U/L (9-52); AST/SGOT 40 U/L (14-36); BLOOD UREA NITROGEN 17 mg/dL (7-17); CALCIUM 9.7 mg/dl (8.6-10.4); GFR AFRICAN-AMERICAN > 60; GFR NON-AFRICAN AMERICAN > 60
--- NOTE | 2017-10-07 10:33 | CP.PCM.PN ---
Subjective - Date & Time of Evaluation Date of Evaluation: 10/07/17 Time of Evaluation: 10:35 - Subjective Subjective: Progress note dictated #[id number] Objective - Vital Signs/Intake and Output Vital Signs (last 24 hours): Temp Pulse Resp BP Pulse Ox 98.6 F 110 H 20 164/87 H 98 10/07/17 08:28 10/07/17 08:28 10/07/17 08:28 10/07/17 08:28 10/06/17 23:25 Intake and Output: 10/07/17 10/07/17 06:59 18:59 Intake Total 500 Balance 500 - Medications Medications: Current Medications Hydromorphone HCl (Dilaudid) 1 mg IVP Q6H PRN PRN Reason: Pain, severe (8-10) Last Admin: 10/07/17 08:33 Dose: 1 mg Ceftriaxone Sodium 1 gm/ (Sodium Chloride) 100 mls @ 200 mls/hr IVPB Q24H MICHAEL Last Admin: 10/06/17 14:55 Dose: 200 mls/hr - Labs Labs: 10/07/17 07:51 10/07/17 07:51 PT 9.3 SECONDS (9.7-12.2) L 10/05/17 02:17 INR 0.8 10/05/17 02:17 APTT 27 SECONDS (21-34) 10/05/17 02:17
[2017-10-07 10:41] LABS: ANISOCYTOSIS SLIGHT; EOSINOPHIL 1 % (0-4); LARGE PLATELETS PRESENT; LYMPHOCYTE 10 % (20-40); MONOCYTE 4 % (0-10); NEUTROPHIL 85 % (50-75); PLATELET ESTIMATE NORMAL (NORMAL); TOTAL CELLS COUNTED 100
[2017-10-07] MEDS ORDERED: Potassium Chloride 20 mEq ER Tab PO ONE (10:45)
--- NOTE | 2017-10-07 14:55 | PCM.PSYCH ---
Initial Psychiatric Evaluation - Initial Psychiatric Evaluation Type of Admission: Voluntary Legal Status: Capacity Current Medications: Active Medications Generic Name Dose Route Start Last Admin Trade Name Freq PRN Reason Stop Dose Admin Hydromorphone HCl 1 mg 10/06/17 12:30 10/07/17 14:40 Dilaudid IVP 1 mg Q6H PRN Administration Pain, severe (8-10) Ceftriaxone Sodium 1 gm/ 100 mls @ 200 mls/hr 10/05/17 14:00 10/07/17 14:40 Sodium Chloride IVPB 200 mls/hr Q24H MICHAEL Administration Past Psychiatric History - Past Psychiatric History Previous Treatment History: None Pertinent Medical Hx (Current Medical&Sleep Prob, Allergies): Allergies Allergy/AdvReac Type Severity Reaction Status Date / Time No Known Allergies Allergy Verified 10/05/17 02:08 No Known Home Med 10/05/17 Review of Systems - Review of Systems All systems: reviewed and no additional remarkable complaints except - Psychiatric Psychiatric: Anxiety, Depression, Irritability. absent: Suicidal Ideation Mental Status Examination - Personal Presentation Personal Presentation: Looks stated age - Affect Affect: Constricted, Depressed - Motor Activity Motor Activity: Calm - Reliability in Providing Information Reliability in Providing Information: Fair - Speech Speech: Organized - Mood Mood: Depressed, Anxious - Formal Thought Process Formal Thought Process: No Impairment - Obsessions/Compulsions Obsessions: No Compulsions: No - Cognitive Functions Orientation: Person, Place, Situation, Time Sensorium: Alert Attention/Concentration: Attentive Abstract Thinking: [place] Estimate of Intelligence: Below average Judgement: Imparied, as evidence by: Poor judgement, Intact, as evidence by: Insight regarding need for hospitalization - Risk Risk: Diminished functioning - Limitations Limitations: Living alone DSM 5 DX - DSM 5 DSM 5 Diagnosis: Mood disorder Psychoeducation Supportive therapy, individual therapy Cymbalta 30 mg by mouth daily Trazodone 50 mg by mouth daily at bedtime Opioid use disorder severe CBT Psychoeducation Supportive therapy, individual therapy Use CT for abstinence Patient doesn't want to be on methadone she still wants to get opiate pain medication - Recommended/Plan of Treatment Treatment Recommendations and Plan of Treatment: Pt psychiatrically stable and cleared for discharge. - Smoking Cessation Smoking Cessation Initiated: No
--- NOTE | 2017-10-08 02:43 | PN ---
DATE: 10/07/2017 SUBJECTIVE: The patient was seen and examined at bedside this morning. The patient is still complaining of back pain, asking for increased pain medications and muscle relaxants. No further seizure activity noted while she is at the hospital. Denies any other neurologic symptoms. PHYSICAL EXAMINATION: GENERAL: Young female, lying in bed, in no acute distress. VITAL SIGNS: Blood pressure 106/65, pulse 83, respirations 20, temperature 98.8 degrees Fahrenheit, O2 sats are 97% on room air. HEENT: Pupils equal, round, and reacting to light and accommodation. Extraocular muscles intact. No icterus. No pallor. No oral thrush. No pharyngeal congestion. No nasal congestion. NECK: Supple. No JVD. No thyromegaly. CHEST: Moving equally bilaterally on respiration. LUNGS: Bilateral vesicular breath sounds. No wheezing, no rhonchi. CVS: S1, S2 present. Regular. ABDOMEN: Soft, nontender. Bowel sounds present. No guarding. No rigidity. No rebound tenderness noted. LINE MAINTAINER SECTION: Alert, awake, and oriented x3. No focal deficits noted. EXTREMITIES: No edema. Palpable peripheral pulses. MEDICATIONS: Include Cymbalta 30 mg daily, Dilaudid 1 mg q.6 hours p.r.n., Atarax 25 mg q.6 as needed, trazodone 50 mg p.o. at bedtime, Cymbalta 30 mg p.o. daily, Rocephin 1 gm IV daily. LABORATORY DATA: Labs from today, WBC 11.9, hemoglobin 13.6, hematocrit 39.4, platelets are 390. Sodium 139, potassium 3.5, chloride 100, bicarb 24, BUN 17, creatinine 0.5, glucose 112, calcium 9.7, 5.0, AST 40, ALT 62, alkaline phosphatase 72. EEG results pending. ASSESSMENT AND PLAN: A young female with questionable diagnosis of multiple sclerosis, admitted for witnessed seizure as per the patient, found to have mastoiditis with chronic low back pain, anxiety, and hypokalemia. Continue with current pain medication. Follow up with EEG results. Psychiatric consult appreciated. The patient is started on trazodone and Cymbalta. As per the RN, Dr. Matos who is certified corporate travel executive for health and wellness at [facility] called the hospital regarding this patient and requested the physician to call her back. I spoke to Dr. Matos at [phone] regarding this patient. As per Dr. Matos, she was doing well until the undergraduate level. This semester, she has not been doing well, failing grades. From next Sunday, she is going to go on medical leave. As per her, she has been following up with the neurologist, Dr. Garner at [facility]. As per Dr. Matos, she has never had a diagnosis of multiple sclerosis, but she has been monitored by Dr. Garner closely. She has been visiting multiple emergency rooms, at least 4 to 5 times over the past one month, was at [place] and at [facility], and at one point, she woke up in the middle of the night knocking on the other resident's dorms asking for milk, claiming that she just spoke to her mother in the middle of the night where her mother was not there. She was considered not lucid at that time, and lately, the patient has not been able to keep the room clean leaving all the trash on the floor and not keeping up. They had to call the police for safety at which point, they confiscated with a bag of multiple pain medications getting from different hospitals in the past one month. At the last admission, she was told that acute intoxication of drugs and she was sent back. As per her, she did not get any information from the roommates that she was having a seizure activity in the dorms, but she said she would talk to the other roommates and confirm the information regarding the seizures, but as per her, there is no diagnosis of multiple sclerosis made for this patient by her neurologist, as she claims. We will call the patient's neurologist in a.m. We will continue with current medications. We will follow up with the marriage and family social worker for discharge planning. Brandie Valdes MD
[2017-10-08] MEDS: HYDROmorphone 1 mg/ml ISec IVP PRN ×2 (03:19→09:17)
[2017-10-08 07:36] LABS: BASO # 0.1 K/uL (0.0-0.2); BASO % 0.6 % (0.0-2.0); EOS # 0.2 K/uL (0.0-0.7); EOS % 1.8 % (0.0-4.0); LYMPH # 1.7 K/uL (1.0-4.3); LYMPH % 18.6 % (20.0-40.0); MEAN CELL VOLUME 91.4 fL (81.0-99.0); MEAN CORPUSCULAR HEMOGLOBIN 32.2 pg (27.0-31.0); MEAN CORPUSCULAR HGB CONC 35.2 g/dL (33.0-37.0); MONO # 0.6 K/uL (0.0-0.8); MONO % 7.2 % (0.0-10.0); NEUT # 6.5 K/uL (1.8-7.0); NEUT % 71.8 % (50.0-75.0); NRBC % 0.1 % (0.0-2.0); RBC 4.35 Mil/uL (3.80-5.20); RED CELL DISTRIBUTION WIDTH 14.6 % (11.5-14.5)
[2017-10-08 07:44] LABS: ALB/GLOB RATIO 1.3 (1.0-2.1); ALBUMIN 4.5 g/dL (3.5-5.0); ALT/SGPT 59 U/L (9-52); AST/SGOT 30 U/L (14-36); BLOOD UREA NITROGEN 17 mg/dL (7-17); CALCIUM 9.7 mg/dl (8.6-10.4); GFR AFRICAN-AMERICAN > 60; GFR NON-AFRICAN AMERICAN > 60
[2017-10-08 07:54] VITALS: BP 115/72; PULSE 101; RESP 18; TEMP 98.3; O2SAT 100
--- NOTE | 2017-10-08 09:40 | CARD ---
APPROVED REPORT EKG Measurement Heart [id number] <Conclusion> Sinus tachycardia Otherwise normal ECG
--- NOTE | 2017-10-08 10:46 | CP.PCM.PN ---
Subjective - Date & Time of Evaluation Date of Evaluation: 10/08/17 Time of Evaluation: 10:50 - Subjective Subjective: Discharge summary dictated # [id number] Objective - Vital Signs/Intake and Output Vital Signs (last 24 hours): Temp Pulse Resp BP Pulse Ox 98.3 F 101 H 18 115/72 100 10/08/17 07:00 10/08/17 07:00 10/08/17 07:00 10/08/17 07:00 10/08/17 07:00 Intake and Output: 10/08/17 10/08/17 06:59 18:59 Intake Total 480 Balance 480 - Medications Medications: Current Medications Duloxetine HCl (Cymbalta) 30 mg PO DAILY [facility] Last Admin: 10/08/17 09:18 Dose: 30 mg Hydromorphone HCl (Dilaudid) 1 mg IVP Q6H PRN PRN Reason: Pain, severe (8-10) Last Admin: 10/08/17 09:17 Dose: 1 mg Hydroxyzine HCl (Atarax) 25 mg PO Q6 PRN PRN Reason: Agitation Ceftriaxone Sodium 1 gm/ (Sodium Chloride) 100 mls @ 200 mls/hr IVPB Q24H MICHAEL Last Admin: 10/07/17 14:40 Dose: 200 mls/hr Trazodone HCl (Desyrel) 50 mg PO HS MICHAEL Last Admin: 10/07/17 22:28 Dose: 50 mg - Labs Labs: 10/08/17 07:12 10/08/17 07:12 PT 9.3 SECONDS (9.7-12.2) L 10/05/17 02:17 INR 0.8 10/05/17 02:17 APTT 27 SECONDS (21-34) 10/05/17 02:17
--- NOTE | 2017-10-08 12:30 | PCM.PYCHPN ---
Mental Status Examination - Cognitive Function Orientation: Person, Place, Situation, Time Memory: Intact Attention: WNL Concentration: Poor Association: WNL Fund of Knowledge: Poor - Mood Mood: Anxious - Affect Affect: Constricted, Depressed - Speech Speech: Soft - Formal Thought Process Formal Thought Process: No Impairment - Suicidal Ideation Suicidal Ideation: No - Homicidal Ideation Homicidal Ideation: No Goal/Treatment Plan - Goal/Treatment Plan Need for Continued Stay: Severe depression anxiety Progress Toward Problem(s) and Goals/Treatment Plan: Opioid use disorder severe Mood disorder Psychoeducation Supportive therapy, individual therapy Cymbalta 30 mg by mouth daily Trazodone 50 mg by mouth daily at bedtime Pt psychiatrically stable and cleared for discharge. - Smoking Cessation Smoking Cessation Initiated: No
--- NOTE | 2017-10-08 14:17 | EEG ---
DATE: 10/05/2017 This is a 16-channel electroencephalogram of awake and anxious adult. During the study, photic stimulation was performed and hyperventilation was not performed. The resting electroencephalogram shows low amplitude fast beta activity superimposed with muscle artifact noted diffusely in bilateral cortical leads. Later, this activity has slowed down to form a 5-7 Hz theta activities. Some movement artifact and muscle artifact contaminated the background rhythm intermittently. The photic stimulation did not evoke driving response noted at 2 to 20 Hz. IMPRESSION: This is an abnormal electroencephalogram for her age because of persistent slowing activity suggestive of bilateral cerebral dysfunction. The theta activity should be related to her drug effect. During the study, neither slowing nor paroxysmal activities noted. Avery Zheng MD
--- NOTE | 2017-10-08 14:32 | PN ---
DATE: 10/08/2017 TIME OF EVALUATION: 06:55 a.m. NEUROLOGICAL PROBLEM: New onset of seizure with a history of multiple sclerosis secondary to optic neuritis. OBJECTIVE: VITAL SIGNS: Blood pressure 110/66, mean artery pressure of 80, respiratory rate 18, temperature 98.0 with a pulse rate 89. GENERAL: The patient is awake, arousable and oriented to person, place and time. No sign of depression. Still complaining of pain, back and legs. Multiple question on her multiple sclerosis as well as her optic neuritis as well as seizures. Her recent workup including MRI of the brain does not show any plaques suggestive of demyelinating process, though patient has movement artifact. Address the program. Address does not show any electrographic paroxysmal activities or focal slowing . Her blood workup shows a vitamin D level is low, otherwise blood workup all normal except a mildly elevation of WBC. RECOMMENDATIONS: 1. From neurological point of view, the patient does not need any further workup. The patient is advised to have a followup visit with her neurologist for further management of her possible existing multiple sclerosis. 2. I do not want to her to be on antiepileptic drugs because she does not have any witnessed seizure activities. Without any antiepileptic drugs, the patient has been stable for more than 72 hours at present. The patient is under pain management. Advised not to be on narcotics for pain. The patient can be supplemented with vitamin D, potassium and proper hydration. From neurological point of view, she does not need any further workup. Avery Zheng MD
[2017-10-09 10:50] LABS: 23 KD (IGG) BAND Nonreactive
--- NOTE | 2017-10-09 13:03 | DS ---
DISCHARGE DIAGNOSES: Chronic back pain, presumed diagnosis of multiple sclerosis as per patient; questionable seizures as reported by the patient, unclear if witnessed by the patient's roommates; mastoiditis; opioid use disorders, severe; and mood disorder; and status post hypokalemia. HISTORY OF PRESENT ILLNESS: Ms. Murillo is a 27-year-old female with a questionable diagnosis of multiple sclerosis, as per the patient diagnosed about two years ago. She claims that she was started on Gilenya and she self-discontinued because of the side effects of nausea about three months ago, has been following up with neurologist, noncompliant with medication, now visiting multiple hospitals. As per her, recently [facility]. Came into the hospital by [facility]. As per her, she had seizures as reported by her roommates, who recommended her to come to the emergency room. In the ED, the patient was evaluated and being admitted for further management and workup of seizures. Today, the patient is feeling much better. Denies any headache, dizziness. Denies any chest pain, shortness of breath, or wheezing. Denies any nausea, vomiting, abdominal pain, diarrhea, or constipation. Denies any urinary complaints. Complaining of chronic low back pain, requesting for pain medication. Denies any other neurologic symptoms. All other systems reviewed and were found to be negative. PHYSICAL EXAMINATION: GENERAL: On examination, young female lying in bed in no acute distress. VITAL SIGNS: Blood pressure 115/72, pulse 101, respiration 18, temperature 98.3 degrees Fahrenheit, O2 sats 100% on room air. HEENT: Pupils equal, round, and reacting to light and accommodation. Extraocular muscles intact. No icterus. No pallor. No oral thrush. No pharyngeal congestion. NECK: Supple. No JVD. No thyromegaly. CHEST: Moving equally bilaterally on respiration. LUNGS: Bilaterally vesicular breath sounds. No wheezing, no rhonchi. CVS: S1 and S2 present, regular. ABDOMEN: Soft, nontender. Bowel sounds present. No guarding, no rigidity. No rebound tenderness noted. DRIVER LICENSE TECHNICIAN: Alert, awake, oriented x3. No focal deficits noted. EXTREMITIES: No edema. Palpable peripheral pulses. LABORATORY DATA: From today, WBC 9, hemoglobin 14, hematocrit 39.8, and platelets 384. Sodium 139, potassium 4.0, chloride 100, bicarb 23, BUN 17, creatinine 0.5, glucose 105, calcium 9.7, ALT is 59, AST is 30, total protein 7.9, albumin 4.5. Urine drug screen negative. Mycoplasma negative. HOSPITAL COURSE: The patient was admitted to the hospital for presumed seizure. The patient did not have any episodes of seizure activity while she was in the hospital for 72 hours. The patient underwent MRI and EEG and the CT scan, which were all negative. The patient has been requesting for multiple pain medication and requesting to increase the frequency of the medication and also requesting for muscle relaxants. The patient was evaluated by psychiatry. The patient was started on Cymbalta and trazodone and cleared for discharge. Discussed with Dr. Matos from [facility]. As per her, the patient has been going to hospitals for multiple visits in the past one month. She had gone to 4 to 5 hospitals. As the patient is having a followup with her neurologist coming up and the patient is otherwise cleared by neurology and psychiatry and no further episodes of seizure activity while in the hospital, the patient is being discharged and advised the patient to follow up with PMD and follow up with Neurology and follow up with psychiatry and the pain management as outpatient. CONDITION UPON DISCHARGE: The patient is alert, awake, oriented x3 and hemodynamically stable at the time of discharge. DISCHARGE INSTRUCTIONS: 1. Follow up with PMD. 2. Follow up with psychiatry. 3. Follow up with Neurology. 4. Follow up with pain management. DISCHARGE DIET: Heart healthy diet. ACTIVITY: As tolerated. DISCHARGE MEDICATIONS: Please refer to medication reconciliation at the time of discharge. Brandie Valdes MD
== END 2017-10-08 13:42 | disposition home or self-care (01) | DRG 889 ==
LOC: C.ER 01:25 → SUPCPDRO 01:25 → C.9E 04:02 → C.5S 05:28
PROVIDERS: ADMIT Internal Medicine; ATTEND Internal Medicine
PROC: HZ52ZZZ Individual Psychotherapy for Substance Abuse Treatment, Cognitive-Behavioral (ICD-10-PCS; principal; 2017-10-07)
PROC: HZ59ZZZ Individual Psychotherapy for Substance Abuse Treatment, Supportive (ICD-10-PCS; 2017-10-07)
PROC: HZ56ZZZ Individual Psychotherapy for Substance Abuse Treatment, Psychoeducation (ICD-10-PCS; 2017-10-07)
PROC: HZ42ZZZ Group Counseling for Substance Abuse Treatment, Cognitive-Behavioral (ICD-10-PCS; 2017-10-07)
PROC: HZ46ZZZ Group Counseling for Substance Abuse Treatment, Psychoeducation (ICD-10-PCS; 2017-10-07)
DX: R56.9 Unspecified convulsions (principal); G35 Multiple sclerosis; F11.20 Opioid dependence, uncomplicated; E87.6 Hypokalemia; H74.90 Unspecified disorder of middle ear and mastoid, unspecified ear; H46.9 Unspecified optic neuritis; Z91.19 Patient's noncompliance with other medical treatment and regimen; G89.29 Other chronic pain; M54.5 Low back pain; F41.9 Anxiety disorder, unspecified; F32.9 Major depressive disorder, single episode, unspecified; F39 Unspecified mood [affective] disorder